=== PATIENT | male | born 1960 | race Caucasian/White ===

== ENCOUNTER 2023-07-09 12:10 | Inpatient (IN) | payer BC, OTHER ==
[~2023-07-09] VITALS: Ht 175.3 cm; Wt 81.6 kg
[2023-07-09 12:43] LABS: HEMATOCRIT 47 % (39-51); HEMOGLOBIN 15.7 g/dL (13.5-17.5); LYMPHOCYTES % (AUTO) 9.8 % (20.0-44.0); MEAN CORPUSCULAR HEMOGLOBIN 30 PG (26.0-33.0); MEAN CORPUSCULAR HGB CONC 34 g/dl (31.0-36.0); MEAN CORPUSCULAR VOLUME 89 fL (80-96); MONOCYTES % (AUTO) 4.3 % (2.0-12.0); NEUTROPHILS % (AUTO) 84.7 % (43.0-81.0); PLATELET COUNT (AUTO) 224 K/uL (150-450); RED BLOOD CELL COUNT(AUTO) 5.21 MIL/uL (4.5-6.0); RED CELL DISTRIBUTION WIDTH 13.1 % (11.5-15.0); WHITE BLOOD COUNT (AUTO) 10.7 K/uL (4.3-11.0)
[2023-07-09 12:44] LABS: BASOPHILS % (AUTO) 0.4 % (0.0-2.0); EOSINOPHILS # (AUTO) 0.1 K/uL (0.0-0.7); EOSINOPHILS % (AUTO) 0.8 % (0.0-6.0); MONOCYTES # (AUTO) 0.5 K/uL (0.1-1.30); NEUTROPHILS # (AUTO) 9.1 K/uL (1.8-8.9)
[2023-07-09 12:54] LABS: CALCIUM, SERUM 10.6 mg/dL (8.5-10.1); CARBON DIOXIDE 26 mmol/L (21-32); CHLORIDE 100 mmol/L (98-107); CREATININE 0.9 mg/dL (0.6-1.3); GLUCOSE 107 mg/dL (74-106); SODIUM SERUM 138 mmol/L (136-145); UREA NITROGEN, BLOOD 19 mg/dL (7-18)
[2023-07-09 13:00] LABS: ALANINE AMINOTRANSFERASE 28 U/L (12-78); ALBUMIN 4.4 g/dL (3.4-5.0); ALKALINE PHOSPHATASE 94 U/L (46-116); ASPARTATE AMINOTRANSFERASE 20 U/L (15-37); BILIRUBIN,DIRECT 0.3 mg/dL (0.0-0.2); BILIRUBIN,TOTAL 1.2 mg/dL (0.2-1.0); LIPASE 31 U/L (73-393)
[2023-07-09] MEDS ORDERED: CARI350T27 PO (14:15)
[2023-07-09] MEDS ORDERED: CLOP75TA15 PO (14:15)
[2023-07-09] MEDS ORDERED: CARB1TAB21 PO (14:15)
[2023-07-09] MEDS ORDERED: ROSU20TA32 PO (14:15)
[2023-07-09] MEDS ORDERED: ASPI-1420 PO (14:15)
[2023-07-09 14:20] LABS: APPEARANCE,URINE CLOUDY (CLEAR); BILIRUBIN,URINE NEGATIVE (NEGATIVE); BLOOD, URINE 2+ Ery/uL (NEGATIVE); COLOR,URINE YELLOW (YELLOW); KETONES,URINE 3+ mg/dL (NEGATIVE); LEUKOCYTE ESTERASE ,URINE 2+ (NEGATIVE); NITRITE, URINE POSITIVE (NEGATIVE); PROTEIN,URINE 1+ mg/dl (NEGATIVE); UGLUCOSE NEGATIVE (NEGATIVE); UROBILINOGEN,URINE 0.2 EU/dL (0.2)
[2023-07-09 14:33] LABS: WBC,URINE TOO NUMEROUS TO COUN /HPF (0-3)
[2023-07-09 14:34] LABS: ADD URINE CULTURE YES; BACTERIA,URINE 4+ /HPF (None Seen); MUCUS,URINE Moderate /LPF (None Seen); SQUAMOUS EPITHELIAL CELL,UR None Seen /HPF (None Seen)
[2023-07-09] MEDS ORDERED: CARISOPRODOL 350 MG TABLET PO PRN (17:30)
[2023-07-09] MEDS ORDERED: MAG HYDROX/AL HYDROX/SIMETH 30 ML UDC PO PRN (17:30)
[2023-07-09] MEDS ORDERED: ACETAMINOPHEN 325 MG TABLET PO PRN (17:30)
[2023-07-09] MEDS ORDERED: MAGNESIUM HYDROXIDE 30 ML UDC PO PRN (17:30)
[2023-07-09] MEDS ORDERED: Z GUARD REMEDY 4 OZ OINT TP PRN (17:30)
[2023-07-09] MEDS ORDERED: ONDANSETRON HCL/PF 4 MG/2 ML VIAL IVP PRN (17:30)
[2023-07-09 17:35] VITALS: BP 180/100; TEMP 97.5; O2SAT 98
[2023-07-09] MEDS ORDERED: hydrALAZINE HCL IV 20 MG VIAL IV PRN (19:30)
[2023-07-09] MEDS: IV NS 0.9% 1,000 ML IV PRN (19:31)
[2023-07-09 20:00] VITALS: BP 153/86; TEMP 97.9; O2SAT 98
[2023-07-09] MEDS: CEFTRIAXONE 1 G in IV D5W 50 ML IV SCH (20:00)
[2023-07-09] MEDS: hydrALAZINE HCL 25 MG TABLET PO SCH ×2 (22:00→22:05)
[2023-07-10 04:00] VITALS: BP 106/71; TEMP 98.2; O2SAT 99
[2023-07-10 06:43] LABS: BASOPHILS # (AUTO) 0.1 K/uL (0.0-0.2); BASOPHILS % (AUTO) 0.7 % (0.0-2.0); EOSINOPHILS # (AUTO) 0.2 K/uL (0.0-0.7); EOSINOPHILS % (AUTO) 2.6 % (0.0-6.0); HEMATOCRIT 41 % (39-51); HEMOGLOBIN 13.8 g/dL (13.5-17.5); LYMPHOCYTES # (AUTO) 1.7 K/uL (0.8-4.8); LYMPHOCYTES % (AUTO) 19.9 % (20.0-44.0); MEAN CORPUSCULAR HEMOGLOBIN 30 PG (26.0-33.0); MEAN CORPUSCULAR HGB CONC 34 g/dl (31.0-36.0); MEAN CORPUSCULAR VOLUME 90 fL (80-96); MONOCYTES # (AUTO) 0.8 K/uL (0.1-1.30); MONOCYTES % (AUTO) 8.9 % (2.0-12.0); NEUTROPHILS # (AUTO) 5.9 K/uL (1.8-8.9); NEUTROPHILS % (AUTO) 67.9 % (43.0-81.0); PLATELET COUNT (AUTO) 240 K/uL (150-450); WHITE BLOOD COUNT (AUTO) 8.7 K/uL (4.3-11.0)
[2023-07-10 06:58] LABS: ALBUMIN 3.5 g/dL (3.4-5.0); BILIRUBIN,TOTAL 0.7 mg/dL (0.2-1.0); CALCIUM, SERUM 9.6 mg/dL (8.5-10.1); CREATININE 0.9 mg/dL (0.6-1.3); POTASSIUM 3.4 mmol/L (3.5-5.1); TOTAL PROTEIN, SERUM 6.5 g/dL (6.4-8.2)
[2023-07-10] MEDS: CARBIDOPA/LEVODOPA 25/100 MG 1 UDTAB PO SCH ×3 (08:19→16:08)
[2023-07-10] MEDS: ATORVASTATIN 40 MG TABLET PO SCH (08:19)
[2023-07-10] MEDS: CLOPIDOGREL BISULFATE 75 MG TABLET PO SCH (08:19)
[2023-07-10] MEDS: ASPIRIN EC 81 MG TABLET.DR PO SCH (08:19)
[2023-07-10] MEDS ORDERED: POTASSIUM CHLORIDE 20 MEQ TAB.PRT.SR PO ONE (09:00)
[2023-07-10] MEDS: hydrALAZINE HCL 25 MG TABLET PO SCH ×3 (13:15→20:37)
[2023-07-10 16:00] VITALS: BP 104/64; TEMP 98.6; O2SAT 98
[2023-07-10] MEDS: CEFTRIAXONE 1 G in IV D5W 50 ML IV SCH (19:46)
[2023-07-10 20:00] VITALS: BP 134/77; TEMP 98.4; O2SAT 98
[2023-07-11] VITALS: BP 138/76; TEMP 98.4; O2SAT 98
[2023-07-11] MEDS: IV NS 0.9% 1,000 ML IV PRN (03:10)
[2023-07-11 04:00] VITALS: BP 144/84; TEMP 97.5; O2SAT 96
[2023-07-11] MEDS: hydrALAZINE HCL 25 MG TABLET PO SCH ×3 (05:06→20:57)
[2023-07-11 08:00] VITALS: BP 145/88; TEMP 97.9; O2SAT 97
[2023-07-11] MEDS: CLOPIDOGREL BISULFATE 75 MG TABLET PO SCH (09:50)
[2023-07-11] MEDS: ASPIRIN EC 81 MG TABLET.DR PO SCH (09:50)
[2023-07-11] MEDS: CARBIDOPA/LEVODOPA 25/100 MG 1 UDTAB PO SCH ×3 (09:50→18:01)
[2023-07-11] MEDS: ATORVASTATIN 40 MG TABLET PO SCH (09:50)
[2023-07-11 12:00] VITALS: BP 150/89; TEMP 98.4; O2SAT 97
[2023-07-11 20:00] VITALS: BP 139/79; TEMP 98.6; O2SAT 100
[2023-07-11] MEDS: CEFTRIAXONE 1 G in IV D5W 50 ML IV SCH (20:57)
[2023-07-12] VITALS: BP 137/83; TEMP 98.9; O2SAT 98
[2023-07-12 04:00] VITALS: BP 146/85; TEMP 98.2; O2SAT 97
[2023-07-12] MEDS: hydrALAZINE HCL 25 MG TABLET PO SCH ×2 (05:00→12:54)
[2023-07-12 07:08] LABS: BASOPHILS % (AUTO) 0.4 % (0.0-2.0); EOSINOPHILS # (AUTO) 0.3 K/uL (0.0-0.7); EOSINOPHILS % (AUTO) 3.1 % (0.0-6.0); HEMATOCRIT 45 % (39-51); HEMOGLOBIN 15.2 g/dL (13.5-17.5); LYMPHOCYTES # (AUTO) 1.6 K/uL (0.8-4.8); LYMPHOCYTES % (AUTO) 15.1 % (20.0-44.0); MEAN CORPUSCULAR HEMOGLOBIN 30 PG (26.0-33.0); MEAN CORPUSCULAR HGB CONC 34 g/dl (31.0-36.0); MEAN CORPUSCULAR VOLUME 90 fL (80-96); MONOCYTES # (AUTO) 0.7 K/uL (0.1-1.30); MONOCYTES % (AUTO) 6.7 % (2.0-12.0); NEUTROPHILS # (AUTO) 7.9 K/uL (1.8-8.9); NEUTROPHILS % (AUTO) 74.7 % (43.0-81.0); PLATELET COUNT (AUTO) 235 K/uL (150-450); RED CELL DISTRIBUTION WIDTH 12.9 % (11.5-15.0); WHITE BLOOD COUNT (AUTO) 10.6 K/uL (4.3-11.0)
[2023-07-12 07:30] LABS: ALBUMIN 3.7 g/dL (3.4-5.0); BILIRUBIN,TOTAL 1.5 mg/dL (0.2-1.0); CALCIUM, SERUM 9.8 mg/dL (8.5-10.1); CREATININE 0.6 mg/dL (0.6-1.3); PHOSPHORUS 2.6 mg/dL (2.5-4.9); POTASSIUM 3.6 mmol/L (3.5-5.1); TOTAL PROTEIN, SERUM 7.1 g/dL (6.4-8.2)
[2023-07-12 08:00] VITALS: BP 162/97; TEMP 97.5; O2SAT 97
[2023-07-12] MEDS: ATORVASTATIN 40 MG TABLET PO SCH (08:11)
[2023-07-12] MEDS: ASPIRIN EC 81 MG TABLET.DR PO SCH (08:11)
[2023-07-12] MEDS: CARBIDOPA/LEVODOPA 25/100 MG 1 UDTAB PO SCH ×2 (08:11→12:54)
[2023-07-12] MEDS: CLOPIDOGREL BISULFATE 75 MG TABLET PO SCH (08:11)
[2023-07-12 12:00] VITALS: BP 138/90; TEMP 97.7; O2SAT 97
[2023-07-12 12:54] VITALS: BP 138/90
== END 2023-07-12 18:02 | DRG 689 ==
LOC: ER 12:14 → MEDSG1 16:44 → TELE1 07-10 20:00
PROVIDERS: ADMIT Internal Medicine; ATTEND Internal Medicine
DX: N39.0 Urinary tract infection, site not specified (principal); G93.41 Metabolic encephalopathy; E87.1 Hypo-osmolality and hyponatremia; I25.10 Atherosclerotic heart disease of native coronary artery without angina pectoris; N18.9 Chronic kidney disease, unspecified; I12.9 Hypertensive chronic kidney disease with stage 1 through stage 4 chronic kidney disease, or unspecified chronic kidney disease; G20 Parkinson's disease; E11.22 Type 2 diabetes mellitus with diabetic chronic kidney disease; Z95.5 Presence of coronary angioplasty implant and graft; R29.6 Repeated falls; Z91.81 History of falling; E21.0 Primary hyperparathyroidism; E83.52 Hypercalcemia; K59.00 Constipation, unspecified; R19.7 Diarrhea, unspecified
CPT/HCPCS: 36415; 71045-TC; 80048-TC; 80053-TC; 80076-TC; 81001; 82962-TC; 83690-TC; 83735-TC; 84100-TC; 84484-TC; 85025-TC; 87086-TC; 97110-TC; 97112-TC; 97116-TC; 97530-TC; 97535-TC; A4223; G0378; J0360; J0696; J3490; J7030; J7060